=== PATIENT | female | born 1990 | race Caucasian/White ===

== ENCOUNTER 2020-06-19 17:55 | Inpatient (IN) | payer BC ==
[~2020-06-19] VITALS: Ht 165.1 cm; Wt 70.2 kg
[~2020-06-19 17:55] MED LIST: IBUP-1114 PO; MAPA500T2 PO
[2020-06-19 19:00] VITALS: BP 120/84
[2020-06-19] MEDS ORDERED: MAALOX 30 ML SUSP *UDC PO PRN (19:00)
[2020-06-19] MEDS ORDERED: MOM 30ML SUSPENSION UDC PO PRN (19:00)
[2020-06-19] MEDS: NS 1,000 ML IV SCH (19:54)
[2020-06-19 20:24] LABS: BASO % 0.3 % (0.0-1.0); EOS % 0.1 % (0.0-3.0); HEMATOCRIT 38.6 % (36.0-47.0); HEMOGLOBIN 12.4 g/dl (12.0-15.5); LYMPH # 0.8 10^3/uL (1.5-5.0); LYMPH % 10.6 % (24.0-44.0); MEAN CORPUSCULAR HEMOGLOBIN 28.6 pg (27.0-33.0); MEAN CORPUSCULAR HGB CONC 32.1 g/dl (32.0-36.5); MEAN CORPUSCULAR VOLUME 89.1 fl (80.0-96.0); MONO # 0.4 10^3/uL (0.0-0.8); MONO % 5.2 % (0.0-5.0); NEUTROPHILS # 6.2 10^3/uL (1.5-8.5); NEUTROPHILS % 83.4 % (36.0-66.0); PLATELET COUNT, AUTOMATED 281 10^3/uL (150-450); RED BLOOD COUNT 4.33 10^6/uL (4.00-5.40); WHITE BLOOD COUNT 7.5 10^3/uL (4.0-10.0)
[2020-06-19] MEDS: DOCUSATE SODIUM 100MG CAPSULE PO SCH (21:00)
[2020-06-19 21:03] LABS: ALBUMIN 3.7 GM/DL (3.2-5.2); ALT/SGPT 21 U/L (12-78); BILIRUBIN,TOTAL 0.8 MG/DL (0.2-1.0); BLOOD UREA NITROGEN 13 MG/DL (7-18); CALCIUM LEVEL 8.5 MG/DL (8.5-10.1); CARBON DIOXIDE LEVEL 24 MEQ/L (21-32); CHLORIDE LEVEL 114 MEQ/L (98-107); CREATININE FOR GFR 0.81 MG/DL (0.55-1.30); GLOMERULAR FILTRATION RATE > 60.0 (>60); GLUCOSE, FASTING 84 MG/DL (70-100); POTASSIUM SERUM 3.6 MEQ/L (3.5-5.1); SODIUM LEVEL 143 MEQ/L (136-145); TOTAL PROTEIN 6.4 GM/DL (6.4-8.2)
--- NOTE | 2020-06-19 21:16 | HPEPDOC ---
[facility] Medical History & Physical Date of Admission Jun 19, 2020 Date of Service: Jun 19, 2020 History and Physical CHIEF COMPLAINT: Hematemesis HISTORY OF PRESENT ILLNESS: 29-year-old female with no significant past medical history was seen at [place] emergency room after she had 3 episodes of hematemesis this morning. She states that initial episode was bright red blood followed by coffee-ground emesis. She denies prior episodes of hematemesis. Per ED report, patient reported having melena. However, at the time of examination, patient denies. She also endorses a central abdominal pain which started approximately 1 month ago and has been relapsing remitting occurring approximately one week at a time. She denies having any nausea. She denies any fevers or chills, chest pain, shortness of breath. She does report a history of taking NSAIDs. However, she took 400 mg of Motrin day prior to hematemesis and normally takes at most [address] scan from outside hospital reviewed, per report, a normal appendix, nonspecific bowel pattern, which could indicate a gastroenteritis. Mild intrahepatic ductal dilation recommending a nonemergent liver MRI, post cholecystectomy along with a simple small right ovarian cyst. Hemoglobin at OSH 13, PLT 289, lipase 66. Sodium 144, potassium 4.1, chloride 113. Liver enzymes within normal limits. Bilirubin 0.7. PAST MEDICAL HISTORY: Essential hypertension PAST SURGICAL HISTORY: section Cholecystectomy SOCIAL HISTORY: Patient denies smoking Patient denies etoh use Patient denies illicit drug use FAMILY HISTORY: Patient reports no relevant family history ALLERGIES: Please see below. REVIEW OF SYSTEMS: CONSTITUTIONAL: patient denies fevers, chills HEENT: patient denies blurred vision, loss of vision, headache,. CARDIOVASCULAR: patient denies chest pain, palpitations. RESPIRATORY: patient denies shortness of breath, cough, hemoptysis. GASTROINTESTINAL: Positive for hematemesis GENITOURINARY: patient denies dysuria, discharge. SKIN: patient denies rashes. MUSCULOSKELETAL: patient denies joint pain, neck pain. NEUROLOGICAL: patient denies focal weakness, numbness, seizures. PSYCHIATRIC: patient denies SI/HI. ENDOCRINE: patient denies polyuria, heat intolerance, cold intolerance. HEMATOLOGIC/LYMPHATIC: patient denies easy bruising. HOME MEDICATIONS: Please see below. PHYSICAL EXAMINATION: VITAL SIGNS: please see below General: NAD, comfortable HEENT: PERRLA, EOMI, sclerae clear Neck: supple, normal ROM, no JVD Respiratory: lungs CTAB, no wheeze, no rales, no crackles CVS: RRR, normal S1, S2, no murmurs Abdo: Multiple moderate pain in the central abdomen, as well as in right upper quadrant. No rebound tenderness. No signs of peritonitis. No guarding or rigidity. Extremities: no edema, pulses 2+ MSK: no joint deformities, normal ROM Neuro: no focal neuro deficits, moving all 4 extremities, CN2-12 intact. Strength 5/5 in all 4 extremities. No nystagmus. Psych: calm, cooperative, AAO x 3 LABORATORY DATA: See below. IMAGING: CT abdo scan from 06/18/2020: CT scan from outside hospital reviewed, per report, a normal appendix, nonspecific bowel pattern, which could indicate a gastroenteritis. Mild intrahepatic ductal dilation recommending a nonemergent liver MRI, post cholecystectomy along with a simple small right ovarian cyst. H MICROBIOLOGY: Please see below. ASSESSMENT: 20-year-old female with no past medical history presented with a 3 episodes of hematemesis this morning. States that she does use NSAIDs infrequently and last taken the day before episode approximately 400 mg. She states that she is also having right upper quadrant and central abdominal pain. I was consulted that she developed aware. EGD on 06/20/20. PLAN: #Hematemesis:3 episodes today. Hgb 11.4 (13.0 at OSH). Repeat CBC in AM. Pro tonix 40 mg IV BID. NPO. NS 125 cc/hr. Discussed with Dr. Cartwright, will plan for EGD on 06/20/20. If hgb stable, no repeat episodes, patient can elect to have EGD as outpatient. Patient wishes to see results of CBC in am, and may consider outpatient EGD. #Essential HTN: BP wnl. Takes no meds. #DVT ppx: SCDs, TEDs Vital Signs Vital Signs Date Time Temp Pulse Resp B/P (MAP) Pulse Ox O2 Delivery O2 Flow Rate FiO2 06/19/20 19:00 98.1 76 16 120/84 (96) 98 Room Air Laboratory Data Labs 24H Laboratory Tests 2 06/19/20 20:10: Immature Granulocyte % (Auto) 0.4, Neutrophils (%) (Auto) 83.4H, Lymphocytes (%) (Auto) 10.6L, Monocytes (%) (Auto) 5.2H, Eosinophils (%) (Auto) 0.1, Basophils (%) (Auto) 0.3, Neutrophils # (Auto) 6.2, Lymphocytes # (Auto) 0.8L, Monocytes # (Auto) 0.4, Eosinophils # (Auto) 0.0, Basophils # (Auto) 0.0, Nucleated Red Blood Cells % (auto) 0.0, Anion Gap 5L, Glomerular Filtration Rate > 60.0, Calcium Level 8.5, Total Bilirubin 0.8, Aspartate Amino Transf (AST/SGOT) 8, Alanine Aminotransferase (ALT/SGPT) 21, Alkaline Phosphatase 55, Total Protein 6.4, Albumin 3.7, Albumin/Globulin Ratio 1.4 06/19/20 20:58: CBC/BMP Laboratory Tests 06/19/20 20:10 Home Medications No Active Prescriptions or Reported Meds Allergies Coded Allergies: Penicillins (Verified Allergy, Intermediate, RASH, 06/19/20) amoxicillin (Verified Allergy, Intermediate, RASH, 06/19/20) tuberculin, purified protein deriva (Unverified Allergy, Unknown, 06/19/20) MAJOR LLANOS MD Jun 19, 2020 21:16
[2020-06-20] MEDS: NS 1,000 ML IV SCH ×2 (03:38→11:01)
[2020-06-20 06:00] VITALS: BP 108/68
[2020-06-20] MEDS ORDERED: PANTOPRAZOLE 40MG VIAL (C9113 PER 1) IV SCH (06:00)
[2020-06-20 06:31] LABS: BASO % 0.7 % (0.0-1.0); EOS # 0.1 10^3/uL (0.0-0.5); EOS % 2.3 % (0.0-3.0); HEMATOCRIT 35.9 % (36.0-47.0); HEMOGLOBIN 11.3 g/dl (12.0-15.5); LYMPH % 21.6 % (24.0-44.0); MEAN CORPUSCULAR HEMOGLOBIN 28.3 pg (27.0-33.0); MEAN CORPUSCULAR HGB CONC 31.5 g/dl (32.0-36.5); MEAN CORPUSCULAR VOLUME 89.8 fl (80.0-96.0); MONO # 0.5 10^3/uL (0.0-0.8); MONO % 11.4 % (0.0-5.0); NEUTROPHILS # 2.8 10^3/uL (1.5-8.5); NEUTROPHILS % 63.5 % (36.0-66.0); PLATELET COUNT, AUTOMATED 241 10^3/uL (150-450); WHITE BLOOD COUNT 4.4 10^3/uL (4.0-10.0)
[2020-06-20 06:53] LABS: ALBUMIN 3.2 GM/DL (3.2-5.2); ALT/SGPT 18 U/L (12-78); BILIRUBIN,TOTAL 0.7 MG/DL (0.2-1.0); BLOOD UREA NITROGEN 12 MG/DL (7-18); CALCIUM LEVEL 7.9 MG/DL (8.5-10.1); CARBON DIOXIDE LEVEL 24 MEQ/L (21-32); CHLORIDE LEVEL 114 MEQ/L (98-107); CREATININE FOR GFR 0.66 MG/DL (0.55-1.30); GLOMERULAR FILTRATION RATE > 60.0 (>60); GLUCOSE, FASTING 78 MG/DL (70-100); POTASSIUM SERUM 3.5 MEQ/L (3.5-5.1); SODIUM LEVEL 142 MEQ/L (136-145); TOTAL PROTEIN 5.7 GM/DL (6.4-8.2)
[2020-06-20] MEDS: DOCUSATE SODIUM 100MG CAPSULE PO SCH (07:50)
[2020-06-20] MEDS ORDERED: ACETAMINOPHEN TAB 650MG DOSE (2X325MG) PO ONE (09:00)
[2020-06-20 10:00] VITALS: BP 123/82
--- NOTE | 2020-06-20 10:31 | DS.PDOC ---
Discharge Summary General Date of Admission Jun 19, 2020 at 18:59 Date of Discharge 06/20/20 Discharge Summary PROCEDURES PERFORMED DURING STAY: None ADMITTING DIAGNOSES: hematemesis hx of HTN DISCHARGE DIAGNOSES: gastritis 2/2 nsaid use COMPLICATIONS/CHIEF COMPLAINT: Upper Gi Bleed. HISTORY OF PRESENT ILLNESS: 29-year-old female with no significant past medical history was seen at [place] emergency room after she had 3 episodes of hematemesis this morning. She states that initial episode was bright red blood followed by coffee-ground emesis. She denies prior episodes of hematemesis. Per ED report, patient reported having melena. However, at the time of examination, patient denies. She also endorses a central abdominal pain which started approximately 1 month ago and has been relapsing remitting occurring approximately one week at a time. She denies having any nausea. She denies any fevers or chills, chest pain, shortness of breath. She does report a history of taking NSAIDs. However, she took 400 mg of Motrin day prior to hematemesis and normally takes at most [address] scan from outside hospital reviewed, per report, a normal appendix, nonspecific bowel pattern, which could indicate a gastroenteritis. Mild intrahepatic ductal dilation recommending a nonemergent liver MRI, post cholecystectomy along with a simple small right ovarian cyst. Hemoglobin at OSH 13, PLT 289, lipase 66. Sodium 144, potassium 4.1, chloride 113. Liver enzymes within normal limits. Bilirubin 0.7.. HOSPITAL COURSE: Patient was made nothing by mouth upon admission with IV fluids. The patient was being given IV pantoprazole twice per day. Denies previous any repeat episodes of proptosis or melena. Hemoglobin on admission was 12.4, decreased 11.3, although I suspect this is likely due to dilutional effect of IV hydration. Discussed with GI Dr. Cartwright, GI bleeding, likely related to mucosal barrier disruption secondary to NSAIDs use as well as possibly stress. The patient was offered two choices, either to receive EGD inpatient or to follow up within 3 weeks for an elective EGD. Patient chose to be DC and follow up in 1-2 weeks. She was instructed to avoid acidic foods and as well as the use of NSAIDs. She is instructed to take pantoprazole 40 mg twice per day for at least 14 days followed by pantoprazole once daily. She was instructed to return should she develop repeat hematemesis melena or weakness, fatigue as well as chest pain. DISCHARGE MEDICATIONS: Please see below. ALLERGIES: Please see below. PHYSICAL EXAMINATION ON DISCHARGE: VITAL SIGNS: please see below General: NAD, comfortable HEENT: PERRLA, EOMI, sclerae clear Neck: supple, normal ROM, no JVD Respiratory: lungs CTAB, no wheeze, no rales, no crackles CVS: RRR, normal S1, S2, no murmurs Abdo: soft, no masses, no hepatosplenomegaly, BS+, no rebound tenderness Extremities: no edema, pulses 2+ MSK: no joint deformities, normal ROM Neuro: no focal neuro deficits, moving all 4 extremities, CN2-12 intact. Strength 5/5 in all 4 extremities. No nystagmus. Psych: calm, cooperative, AAO x 3 LABORATORY DATA: Please see below. PROGNOSIS: Good ACTIVITY: [As tolerated]. DIET: GERD diet DISCHARGE PLAN: Home with primary care follow-up in 3-5 days as well as GI within 1-2 weeks. Patient instructed to take PPI. Avoid acidic foods. Avoid NSAIDs. DISPOSITION: . DISCHARGE INSTRUCTIONS: . Please follow-up with your primary care doctor within 3-5 days . Please follow-up with GI within 1-2 weeks. . Please taking medications as prescribed. Pantoprazole 40 BID for 14 days, followed by once daily. . If you develop bleeding, chest pain, shortness of breath, seizures, nausea, fevers, or otherwise worsening of your symptoms, please call 911 or return to the nearest emergency room ITEMS TO FOLLOWUP ON ON OUTPATIENT: Patient requires outpatient EGD within 3 weeks DISCHARGE CONDITION: Stable TIME SPENT ON DISCHARGE: 35 minutes Vital Signs/I&Os Vital Signs Date Time Temp Pulse Resp B/P (MAP) Pulse Ox O2 Delivery O2 Flow Rate FiO2 06/20/20 06:00 98.1 66 18 108/68 (81) 98 06/19/20 19:00 Room Air I&O- Last 24 Hours up to 6 AM 06/20/20 06:00 Intake Total 1250 ml Output Total 150 ml Balance 1100 ml Laboratory Data Labs 24H Laboratory Tests 2 06/19/20 20:10: Immature Granulocyte % (Auto) 0.4, Neutrophils (%) (Auto) 83.4H, Lymphocytes (%) (Auto) 10.6L, Monocytes (%) (Auto) 5.2H, Eosinophils (%) (Auto) 0.1, Basophils (%) (Auto) 0.3, Neutrophils # (Auto) 6.2, Lymphocytes # (Auto) 0.8L, Monocytes # (Auto) 0.4, Eosinophils # (Auto) 0.0, Basophils # (Auto) 0.0, Nucleated Red Blood Cells % (auto) 0.0, Anion Gap 5L, Glomerular Filtration Rate > 60.0, Calcium Level 8.5, Total Bilirubin 0.8, Aspartate Amino Transf (AST/SGOT) 8, A lanine Aminotransferase (ALT/SGPT) 21, Alkaline Phosphatase 55, Total Protein 6.4, Albumin 3.7, Albumin/Globulin Ratio 1.4 06/19/20 20:58: Lactic Acid Level 1.0 06/20/20 05:54: Immature Granulocyte % (Auto) 0.5, Neutrophils (%) (Auto) 63.5, Lymphocytes (%) (Auto) 21.6L, Monocytes (%) (Auto) 11.4H, Eosinophils (%) (Auto) 2.3, Basophils (%) (Auto) 0.7, Neutrophils # (Auto) 2.8, Lymphocytes # (Auto) 1.0L, Monocytes # (Auto) 0.5, Eosinophils # (Auto) 0.1, Basophils # (Auto) 0.0, Nucleated Red Blood Cells % (auto) 0.0, Anion Gap 4L, Glomerular Filtration Rate > 60.0, Calcium Level 7.9L, Total Bilirubin 0.7, Aspartate Amino Transf (AST/SGOT) 10, Alanine Aminotransferase (ALT/SGPT) 18, Alkaline Phosphatase 51, Total Protein 5.7L, Albumin 3.2, Albumin/Globulin Ratio 1.3 CBC/BMP Laboratory Tests 06/19/20 20:10 06/20/20 05:54 Allergies Coded Allergies: Penicillins (Verified Allergy, Intermediate, RASH, 06/19/20) amoxicillin (Verified Allergy, Intermediate, RASH, 06/19/20) tuberculin, purified protein deriva (Unverified Allergy, Unknown, 06/19/20) MAJOR LLANOS MD Jun 20, 2020 10:31
[2020-06-20] MEDS ORDERED: PANT40TA29 PO (10:55)
== END 2020-06-20 12:35 | disposition home or self-care (01) | DRG 241 ==
LOC: M ED INP 18:59 → M MSPAV 19:00
PROVIDERS: ADMIT Family Medicine; ATTEND Family Medicine
DX: K29.71 Gastritis, unspecified, with bleeding (principal); I10 Essential (primary) hypertension; Z88.0 Allergy status to penicillin; Z88.8 Allergy status to other drugs, medicaments and biological substances

== ENCOUNTER → 2021-05-23 | Outpatient (CLI) | payer BC ==
[~2021-05-23] MED LIST changes: +PANT40TA29 PO
== END ==
LOC: M PLALAB 15:32
PROVIDERS: ATTEND Advanced Practice Midwife
DX: Z36.89 Encounter for other specified antenatal screening (principal); Z3A.00 Weeks of gestation of pregnancy not specified

== ENCOUNTER → 2021-05-25 | Outpatient (CLI) | payer BC | LOC: M PLALAB 09:48 | PROVIDERS: ATTEND Advanced Practice Midwife | DX: Z34.80 Encounter for supervision of other normal pregnancy, unspecified trimester (principal); Z3A.00 Weeks of gestation of pregnancy not specified ==

== ENCOUNTER → 2021-05-27 | Outpatient (CLI) | payer BC | LOC: M LAB 09:49 | PROVIDERS: ATTEND Advanced Practice Midwife | DX: N91.2 Amenorrhea, unspecified (principal) ==

== ENCOUNTER → 2021-05-30 | Outpatient (CLI) | payer BC ==
--- NOTE | 2021-05-30 12:11 | REP ---
INDICATION: PREG WITH INCONCLUSIVE VIABILITY. COMPARISON: None. TECHNIQUE: Transvesical and transvaginal imaging FINDINGS: The uterus measures 11.3 x 6 x 7.9 cm. Within the uterus there is an anechoic structure with increased echoes surrounding it consistent with a decidual reaction. Within the gestational sac there is a tiny anechoic structure consistent with a yolk sac. No echogenic material is identified that would be considered consistent with a pole at this time. The mean gestational sac diameter is consistent with a 6 week 3 day gestational age. Doppler of the gestational sac shows no evidence of cardiac activity. The right ovary was not visualized transvesical E or transvaginally. Left ovary measures 3.4 x 2.6 x 2.5 cm and is within normal limits with an RI 0.55. IMPRESSION: There is a gestational sac and yolk sac as described above. No pole is identified at this time. Follow-up is recommended. <Electronically signed by Jim Thomas > 05/30/21 [id number]
== END ==
LOC: M RAD 10:53
PROVIDERS: ATTEND Advanced Practice Midwife
DX: O36.80X0 Pregnancy with inconclusive fetal viability, not applicable or unspecified (principal)